=== PATIENT | female | born 1945 | race Caucasian/White ===

== ENCOUNTER 2023-10-23 03:51 | Emergency (ER) | payer OTHER, SELFPAY ==
[2023-10-23] VITALS (10 sets, daily range): BP systolic 119–150; BP diastolic 61–83; BMI 29.7
--- NOTE | 2023-10-23 04:00 | EDRN ---
TRIAGE NOTE DONE BY LENA WARD RN NOT BELINDA SCRUGGS
[2023-10-23 04:03] LABS: Glucose - Point of Care 157 mg/dl (70-99)
[2023-10-23 04:19] LABS: Hematocrit 38.1 % (37.0-47.0); Hemoglobin 13.1 g/dL (12.0-16.0); Mean Corp Hgb Conc. 34.4 g/dL (33.0-37.0); Mean Corpuscular Hgb 29.2 pg (27.0-31.0); Mean Corpuscular Volume 84.9 fL (81.0-99.0); Mean Platelet Volume 10.9 fL (7.4-10.4); Platelet Count 143 10^3/uL (130-400); Red Blood Cell Count 4.49 10^6/uL (4.20-5.40); Red Cell Dist. Width 12.9 % (11.5-14.5); White Blood Cell Count 8.7 10^3/uL (4.8-10.8)
[2023-10-23] MEDS: MORPHINE SULFATE 4 MG IV (04:33)
[2023-10-23] MEDS: ZOFRAN 4 MG IV ×2 (04:33→11:14)
[2023-10-23 04:42] LABS: ALT (SGPT) 65 U/L (0-35); AST (SGOT) 54 U/L (14-36); Albumin 4.6 g/dl (3.5-5.0); Alkaline Phosphatase 87 U/L (38-126); Blood Urea Nitrogen 24 mg/dl (7-17); Carbon Dioxide 19 mmol/L (22-30); Chloride 108 mmol/L (98-107); Estimated Creatinine Clearance 48 ml/min; Glucose 157 mg/dl (70-99); Lipase 86 U/L (23-300); Potassium 3.7 mmol/L (3.5-5.1); Sodium 139 mmol/L (135-145); Total Bilirubin 1.9 mg/dl (0.2-1.3); Total Protein 7.2 g/dl (6.3-8.2)
[2023-10-23 04:51] LABS: Troponin I < 0.012 ng/ml
--- NOTE | 2023-10-23 05:14 | ED.GENMED ---
Addendum entered and electronically signed by Gerard Mckeon Jr., PA-C 10/26/23 08:19:
Attempted to contact the patient about patient's urine culture as he will need a change in antibiotic. No answer message left.
Original Note:
History of Present Illness
<SHERIN Mims (Lenka) - Last Filed: 10/23/23 06:01>
General
Chief Complaint: Chest Pain
Source: patient and spouse
Exam Limitations: none
Time Seen by Provider: 10/23/23 04:04
Nursing documentation reviewed up to this point in time: agreed with
History of Present Illness
History of Present Illness:
Pt is a Azerbaijani-speaking 77 yo female with PMHx of HTN, hepatitis, renal CA s/p L nephrectomy, and cholecystectomy who presents to the ED with acute onset epigastric chest pain and RUQ pain x 2 hours. Per interpreting, pt awoke from sleep
around 0200 this morning with sudden severe pain localized to the lower mid-epigastrium. The pain now radiates over to her RUQ 'around my liver'. Pt notes that she always has a dull ache around her RUQ since her diagnosis of hepatitis 'when I was
younger', but this pain is worse than it has ever been. She took her BP upon awakening, it was 190/80, took amlodipine, and a recheck showed her BP around 160. She states she feels dizzy from the pain. Admits to having 'cystitis symptoms' of urinary
frequency, burning with urination, and 'pain over the bladder' x a 3-4 days for which she was drinking cranberry juice.
Per , pt had a cholecystectomy in 2001 due to 'elevated bilirubin'.
Past History
<SHERIN Mims (Lenka) - Last Filed: 10/23/23 06:01>
Past History
ED Past Medical History: Cancer (L kidney (s/p nephrectomy)), HTN, Hypothyroidism and Other (hepatitis)
ED Past Surgical History: Cholecystectomy (2001) and Urological (left nephrectomy d/t renal CA)
Social History
Tobacco: Non-smoker
Alcohol: None
Drug: None
Personal:
Living: with family
Phy Exam
<ST Mims (Lenka)CO - Last Filed: 10/23/23 06:01>
General Physical Exam
General Presentation: moderate distress
General age: appears stated age
General Skin: diaphoretic, pale and other (mildly jaundiced)
General Habitus: elderly
General Mental: alert
General Hydration: appears well hydrated
ENT Exam
ENT Exam: pharynx normal
Eye Exam
Eye Exam: conjunctiva normal (anicteric)
Cardiovascular Exam
Cardiovascular Exam: regular rate/rhythm, no edema, no gallop and normal peripheral pulses
Pulmonary Exam
Pulmonary Exam: lungs clear, no respiratory distress, no rales, no rhonchi, no wheezing and no cough
Gastrointestinal Exam
Gastrointestinal Exam: normal bowel sounds, soft, guarding and tender
Palpation: left upper quadrant: Mild tenderness, left lower quadrant: Mild tenderness, right upper quadrant: Severe tenderness and right lower quadrant: Mild tenderness
Liver Exam: jaundice and RUQ tenderness
Neurological Exam
Neurological Exam: alert, oriented x3 and speech normal
Scores
<Martha Rapp (Lenka) [facility] - Last Filed: 10/23/23 06:01>
Heart Score for Chest Pain Patients
STEMI patient?: No
History: Slightly or Non-Suspicious
ECG: Nonspecific Repolarization
Age: >/= 65 years
Risk Factors: 1 or 2 Risk Factors
Troponin: </= Normal Limit
Heart Score for Chest Pain Patients: 4
Heart Score Risk: 20.3% MACE over next 6 weeks
<Karlo Peoples DO - Last Filed: 10/23/23 06:56>
Heart Score for Chest Pain Patients
Heart Score for Chest Pain Patients: 4
Heart Score Risk: 20.3% MACE over next 6 weeks
<Tarah Pozo DO - Last Filed: 10/23/23 12:17>
Heart Score for Chest Pain Patients
Heart Score for Chest Pain Patients: 4
Heart Score Risk: 20.3% MACE over next 6 weeks
Course
<ST Mims (Lenka)CO - Last Filed: 10/23/23 06:01>
Orders/Labs/Results
Orders:
Orders
10/23/23 03:56
Electrocardiogram (*1) Urgent
Reason for Study: Chest Pain
EKG- Treatment ONCE
10/23/23 03:58
Bedside Glucose- Treatment ONCE
10/23/23 04:03
Add On- LAB Urgent
Tests Added?: lipase
10/23/23 04:05
CMP [Comprehensive Metabolic Panel] Urgent
Complete Blood Count/With Diff Urgent
Lipase Urgent
Manual Differential Urgent
Troponin I Urgent
10/23/23 04:08
Lactate Level [Lactic Acid] Urgent
10/23/23 04:30
Morphine Sulfate 4 mg .ROUTE .STK-MED ONE
Ondansetron Injectable [Zofran] 4 mg .ROUTE .STK-MED ONE
10/23/23 04:32
Ondansetron Injectable [Zofran] 4 mg IV NOW STA
10/23/23 04:33
Morphine Sulfate 4 mg IV NOW STA
10/23/23 04:58
CT Abd/pel Without Iv Or Oral Urgent
Comment:
Reason For Exam: flank/abd pain
10/23/23 06:07
Urinalysis Reflex To Culture Urgent
Date Specimen was Collected: 10/23/23
Time Specimen was Collected: 06:03
Urine Microscopic Reflex Cult Urgent
Urine Culture Urgent
PETRA Source: U
Specimen Description:
Date Specimen was Collected: 10/23/23
Time Specimen was Collected: 06:03
10/23/23 06:46
Electrocardiogram (*1) Urgent
Reason for Study: Chest Pain
EKG- Treatment ONCE
EKG- Treatment ONCE
10/23/23 06:54
CR Chest - 2 Views Urgent
Comment:
Reason For Exam: cp
10/23/23 07:31
US Abdomen Complete/Upper Urgent
Reason For Exam: RUQ pain
10/23/23 07:54
Troponin I Urgent
10/23/23 10:59
Ondansetron Injectable [Zofran] 4 mg IV NOW STA
Abnormal Lab Results
10/23/23 10/23/23 10/23/23
03:59 04:05 06:07
MPV 10.9 H fL
(7.4-10.4)
Segmented Neutrophils 35 L %
(42-75)
Monocytes (Manual) 17 H %
(2-9)
Chloride 108 H mmol/L
(98-107)
Carbon Dioxide 19 L mmol/L
(22-30)
BUN 24 H mg/dl
(7-17)
Creatinine 1.1 H mg/dL
(0.6-1.0)
Glucose 157 H mg/dl
(70-99)
Total Bilirubin 1.9 H mg/dl
(0.2-1.3)
AST 54 H U/L
(14-36)
ALT 65 H U/L
(0-35)
Urine Ketones 1+ A
(Negative)
Leukocyte Esterase Rfl 2+ A
(Negative)
Urine WBC (Reflex) 11-15 A /HPF
(0-5)
Urine Bacteria (Reflex) Few A
(Negative)
POC Glucose 157 H mg/dl
(70-99)
10/23/23 04:05
10/23/23 04:05
Vital Signs
Initial and Last Documented VS:
Initial Vital Signs
Pulse Resp BP Pulse Ox
64 28 130/74 99
10/23/23 03:57 10/23/23 03:57 10/23/23 03:57 10/23/23 03:57
Last Documented Vital Signs
Pulse Resp BP Pulse Ox
78 20 150/82 96
10/23/23 11:30 10/23/23 11:30 10/23/23 11:30 10/23/23 11:30
<Karlo Peoples, DO - Last Filed: 10/23/23 06:56>
Orders/Labs/Results
Orders:
Orders
10/23/23 03:56
Electrocardiogram (*1) Urgent
Reason for Study: Chest Pain
EKG- Treatment ONCE
10/23/23 03:58
Bedside Glucose- Treatment ONCE
10/23/23 04:03
Add On- LAB Urgent
Tests Added?: lipase
10/23/23 04:05
CMP [Comprehensive Metabolic Panel] Urgent
Complete Blood Count/With Diff Urgent
Lipase Urgent
Manual Differential Urgent
Troponin I Urgent
10/23/23 04:08
Lactate Level [Lactic Acid] Urgent
10/23/23 04:30
Morphine Sulfate 4 mg .ROUTE .STK-MED ONE
Ondansetron Injectable [Zofran] 4 mg .ROUTE .STK-MED ONE
10/23/23 04:32
Ondansetron Injectable [Zofran] 4 mg IV NOW STA
10/23/23 04:33
Morphine Sulfate 4 mg IV NOW STA
10/23/23 04:58
CT Abd/pel Without Iv Or Oral Urgent
Comment:
Reason For Exam: flank/abd pain
10/23/23 06:07
Urinalysis Reflex To Culture Urgent
Date Specimen was Collected: 10/23/23
Time Specimen was Collected: 06:03
Urine Microscopic Reflex Cult Urgent
Urine Culture Urgent
PETRA Source: U
Specimen Description:
Date Specimen was Collected: 10/23/23
Time Specimen was Collected: 06:03
10/23/23 06:46
Electrocardiogram (*1) Urgent
Reason for Study: Chest Pain
EKG- Treatment ONCE
EKG- Treatment ONCE
10/23/23 06:54
CR Chest - 2 Views Urgent
Comment:
Reason For Exam: cp
10/23/23 07:31
US Abdomen Complete/Upper Urgent
Reason For Exam: RUQ pain
10/23/23 07:54
Troponin I Urgent
10/23/23 10:59
Ondansetron Injectable [Zofran] 4 mg IV NOW STA
Abnormal Lab Results
10/23/23 10/23/23 10/23/23
03:59 04:05 06:07
MPV 10.9 H fL
(7.4-10.4)
Segmented Neutrophils 35 L %
(42-75)
Monocytes (Manual) 17 H %
(2-9)
Chloride 108 H mmol/L
(98-107)
Carbon Dioxide 19 L mmol/L
(22-30)
BUN 24 H mg/dl
(7-17)
Creatinine 1.1 H mg/dL
(0.6-1.0)
Glucose 157 H mg/dl
(70-99)
Total Bilirubin 1.9 H mg/dl
(0.2-1.3)
AST 54 H U/L
(14-36)
ALT 65 H U/L
(0-35)
Urine Ketones 1+ A
(Negative)
Leukocyte Esterase Rfl 2+ A
(Negative)
Urine WBC (Reflex) 11-15 A /HPF
(0-5)
Urine Bacteria (Reflex) Few A
(Negative)
POC Glucose 157 H mg/dl
(70-99)
10/23/23 04:05
10/23/23 04:05
Vital Signs
Initial and Last Documented VS:
Initial Vital Signs
Pulse Resp BP Pulse Ox
64 28 130/74 99
10/23/23 03:57 10/23/23 03:57 10/23/23 03:57 10/23/23 03:57
Last Documented Vital Signs
Pulse Resp BP Pulse Ox
78 20 150/82 96
10/23/23 11:30 10/23/23 11:30 10/23/23 11:30 10/23/23 11:30
<Tarah Pozo, DO - Last Filed: 10/23/23 12:17>
Orders/Labs/Results
Orders:
Orders
10/23/23 03:56
Electrocardiogram (*1) Urgent
Reason for Study: Chest Pain
EKG- Treatment ONCE
10/23/23 03:58
Bedside Glucose- Treatment ONCE
10/23/23 04:03
Add On- LAB Urgent
Tests Added?: lipase
10/23/23 04:05
CMP [Comprehensive Metabolic Panel] Urgent
Complete Blood Count/With Diff Urgent
Lipase Urgent
Manual Differential Urgent
Troponin I Urgent
10/23/23 04:08
Lactate Level [Lactic Acid] Urgent
10/23/23 04:30
Morphine Sulfate 4 mg .ROUTE .STK-MED ONE
Ondansetron Injectable [Zofran] 4 mg .ROUTE .STK-MED ONE
10/23/23 04:32
Ondansetron Injectable [Zofran] 4 mg IV NOW STA
10/23/23 04:33
Morphine Sulfate 4 mg IV NOW STA
10/23/23 04:58
CT Abd/pel Without Iv Or Oral Urgent
Comment:
Reason For Exam: flank/abd pain
10/23/23 06:07
Urinalysis Reflex To Culture Urgent
Date Specimen was Collected: 10/23/23
Time Specimen was Collected: 06:03
Urine Microscopic Reflex Cult Urgent
Urine Culture Urgent
PETRA Source: U
Specimen Description:
Date Specimen was Collected: 10/23/23
Time Specimen was Collected: 06:03
10/23/23 06:46
Electrocardiogram (*1) Urgent
Reason for Study: Chest Pain
EKG- Treatment ONCE
EKG- Treatment ONCE
10/23/23 06:54
CR Chest - 2 Views Urgent
Comment:
Reason For Exam: cp
10/23/23 07:31
US Abdomen Complete/Upper Urgent
Reason For Exam: RUQ pain
10/23/23 07:54
Troponin I Urgent
10/23/23 10:59
Ondansetron Injectable [Zofran] 4 mg IV NOW STA
Abnormal Lab Results
10/23/23 10/23/23 10/23/23
03:59 04:05 06:07
MPV 10.9 H fL
(7.4-10.4)
Segmented Neutrophils 35 L %
(42-75)
Monocytes (Manual) 17 H %
(2-9)
Chloride 108 H mmol/L
(98-107)
Carbon Dioxide 19 L mmol/L
(22-30)
BUN 24 H mg/dl
(7-17)
Creatinine 1.1 H mg/dL
(0.6-1.0)
Glucose 157 H mg/dl
(70-99)
Total Bilirubin 1.9 H mg/dl
(0.2-1.3)
AST 54 H U/L
(14-36)
ALT 65 H U/L
(0-35)
Urine Ketones 1+ A
(Negative)
Leukocyte Esterase Rfl 2+ A
(Negative)
Urine WBC (Reflex) 11-15 A /HPF
(0-5)
Urine Bacteria (Reflex) Few A
(Negative)
POC Glucose 157 H mg/dl
(70-99)
10/23/23 04:05
10/23/23 04:05
Vital Signs
Initial and Last Documented VS:
Initial Vital Signs
Pulse Resp BP Pulse Ox
64 28 130/74 99
10/23/23 03:57 10/23/23 03:57 10/23/23 03:57 10/23/23 03:57
Last Documented Vital Signs
Pulse Resp BP Pulse Ox
78 20 150/82 96
10/23/23 11:30 10/23/23 11:30 10/23/23 11:30 10/23/23 11:30
<SHERIN Mims (Lenka) - Last Filed: 10/23/23 06:01>
MDM/Problems Addressed
Differential Diagnosis Includes:
DDx: R nephrolithiasis vs hepatitis vs MA
Given pts pain localizing to the mid-lower epigastrium and RUQ, hx of hepatitis, and constellation of UTI symptoms, an MA is less likely. The EKG showed some PVCs but no acute STEMI. CrCl 52.40, safe to obtain CTAP w/w/o contrast to asses for
intraabdominal pathology. Will obtain UA.
Chronic conditions affecting care: Previous abdomnial surgery (cholecystectomy and L nephrectomy) and Cancer
<Martha Hightower (Lenka)ki, STPA - Last Filed: 10/23/23 06:01>
*Critical Care Note
Total Time (30-74mins, 75-104mins- exclusive of procedures): Not Applicable
<Karlo Peoples DO - Last Filed: 10/23/23 06:56>
*Critical Care Note
Total Time (30-74mins, 75-104mins- exclusive of procedures): 35 ( Critical care statement: A total of 35 minutes of critical care time was provided for this patient. This time is separate from time utilized to perform the aforementioned documented
procedures. Aggregate critical care time includes only time during which I was engaged in work direct)
<Tarah Pozo DO - Last Filed: 10/23/23 12:17>
Update Note
Update Note:
ATTENDING SIGN OUT NOTE
07:10 -assuming care of patient, 77-year-old female presenting to the emergency department for multiple complaints. Patient complaining of right-sided abdominal pain, flank pain, some substernal chest pain. Patient hemodynamically stable in the
emergency department. Unremarkable workup thus far with negative CT abdomen and pelvis. Patient had still been complaining of pain, added some substernal chest pain. For this reason pending right upper quadrant ultrasound imaging, troponin, chest
x-ray imaging, EKG. Labs thus far relatively unremarkable. No leukocytosis. Slight transaminitis. Patient with history of prior cholecystectomy. At time of signout, patient hemodynamically stable, reporting overall symptomatic improvement.
10:40 -patient's urine without significant signs of infection, trace amount of leukocytes however patient without urinary symptoms. Chest x-ray without acute cardiopulmonary disease. Troponin negative x 2. Right upper quadrant ultrasound shows
some mild dilatation to the bile duct, without additional acute findings. On reassessment, no focal tenderness to the right upper quadrant. At this time without concern for choledocholithiasis. Extensive conversation had with [place]ijani arborist representative,
patient continues to express some nausea and substernal/epigastric pain. Possible gastric component to patient's symptoms. She is requesting more medications. Will administer Zofran. Vital signs otherwise remain normal. She notes she is still
having some dizziness. Will ambulate to ensure steady. Otherwise feel that she is stable for continued outpatient workup. Advised close follow-up with a primary care doctor.
12:00 -patient's daughter arrived, does speak Malay. She would like the patient to be admitted to the hospital. In discussion with patient and daughter, did offer observation admission if patient is still symptomatic. She was able to ambulate,
however reported some dizziness. Vital signs however remained stable. Patient herself however does not want to stay in the hospital, would prefer to go home. Daughter does note longstanding history of urinary tract infections. In further
discussion, patient does note that she has had some slight dysuria. For this reason, will start on antibiotic. Patient has also been taking home remedies for her urinary symptoms which daughter thinks could be contributing to her symptoms, and she
will have her stop this. We went through all of her medications, and patient has not been taking them as directed. She has not been taking her blood pressure medications daily. Patient educated on compliance with medications. Daughter notes that
she will call the primary care doctor for an appointment. At this time do feel patient is stable for discharge, again with close interval follow-up with primary care doctor. Strict return precautions communicated
ED Attending Note
<SHERIN Mims (Lenka) - Last Filed: 10/23/23 06:01>
-
Portions of this chart may have been created with voice recognition software.� Occasional wrong word or��sound alike� substitutions may have occurred due to the inherent limitations of voice recognition software.
<Karlo Peoples DO - Last Filed: 10/23/23 06:56>
ED Attending Note
Patient seen and examined by attending physician: Yes
I performed the substantive portion of visit, reviewed & personally made and approve the management plan that is documented in note by myself or RITU.: Yes
ED Attending Note:
77-year-old female, Azerbaijani-speaking, brought in by private vehicle with acute epigastric chest pain and right upper quadrant abdominal pain for the last 2 hours. History and physical obtained with the help of Azerbaijani arborist representative through [employer]. Patient reports chronic right upper quadrant pain since she was diagnosed with hepatitis when she was younger. She reports that the pain is much worse now than it has been in the past. Patient reports elevated blood pressure since
awakening. She took one of her amlodipine which helped with her elevated blood pressure. Patient does have symptoms consistent with a UTI. Patient symptoms include frequency burning and abdominal pain. Patient is Uni nephric. She did have left
kidney removed due to left renal cancer.
CT Abdomen and Pelvis (without IV contrast):
IMPRESSION:
No acute intra-abdominal findings. No free air or free fluid.
Status post left nephrectomy. No right-sided obstructing renal calculi or hydronephrosis. A few pelvic phleboliths without a stone within the distal ureter.
Status post cholecystectomy, normal bile ducts and pancreas.
No bowel stranding or evidence of obstruction. Normal appendix.
No abdominal aortic aneurysm.
The report was faxed/transmitted at 6:14 AM EST. Please call [facility] at if you would like to discuss the case or have questions.
Patient was seen in conjunction with the PA student. I have reviewed and agree with the history and treatment plan presented. On my independent physical exam, patient is awake, alert, and oriented x3, Azerbaijani-speaking, severe acute distress upon
arrival which improved greatly during the course of the ER visit. Heart was regular rate rhythm. Lungs were clear to auscultation bilaterally without wheezes rales or rhonchi. Abdomen was soft with right-sided CVA tenderness. Right upper
quadrant tenderness to palpation. Was moving all 4 extremities. Skin was warm and dry.
Vital signs are stable. Patient not hypoxic
Nursing note reviewed. I agree with nursing documentation up to this point in time.
Home Meds and allergies reviewed.
NUMBER AND COMPLEXITY OF PROBLEMS ADDRESSED AT THE ENCOUNTER
� Chronic conditions affecting care: Left nephrectomy due to kidney cancer, chronic hepatitis, previous cholecystectomy
� Acute Exacerbation and/or Progression of Chronic Illness: Acute problem
� Differential Diagnosis includes: Kidney stone, colitis, diverticulitis, docolithiasis, hepatitis flareup,
AMOUNT AND/OR COMPLEXITY OF DATA TO BE REVIEWED AND ANALYZED
I performed an independent evaluation of the following and my interpretation is:
EKG: Normal sinus rhythm rate of 63 PVCs present. Left axis deviation. Rate of 63 bpm, normal intervals. When compared with previous EKG dated December 10, 2020, similar morphology noted.
CT: CT abdomen pelvis negative.
X-rays:
Ultrasound: Right upper quadrant ultrasound pending
Laboratory Studies: BUN of 24 creatinine of 1.1, lactic acid of 2.0, T. bili of 1.9, AST of 54, ALT of 65, initial troponin negative at <0.012, lipase of 86
Other:
Review of other/old records:
Clinical information was obtained by an independent historian:
Prescriptions/Medications Considered but not given:
Further testing considered but not performed:
RISK OF COMPLICATIONS AND/OR MORBIDITY OR MORTALITY OF PATIENT MANAGEMENT
Social determinants of health affecting care: Good Social Support
Discussion with other providers:
Escalation of care including admission/observation vs risk of discharge considered:
CRITICAL CARE NOTE:
Critical care statement: A total of 30 minutes of critical care time was provided for this patient. This time is separate from time utilized to perform the aforementioned documented procedures. Aggregate critical care time includes only time
during which I was engaged in work directly related to the patient's care, as described above, whether at the bedside or elsewhere in the Emergency Department.
Total Time (exclusive of procedures):30
Update:
Discharge Plan
Departure
Patient Disposition: Home (Routine Discharge)
Date of Disposition: 10/23/23
Time of Disposition: 12:13
Patient with high blood pressure during this ER visit?: Yes
Condition: Good
Discharge Problem:
Dizziness, Nausea, Urinary tract infection, Chest pain
Instructions: Urinary Tract Infection, Adult ED, Chest Pain DCA Follow Up, BLOOD PRESSURE
Prescriptions:
New
ondansetron 4 mg Tablet,Disintegrating
4 mg PO TIDPRN PRN (Reason: nausea/vomiting) Qty: 6 0RF
cephalexin 500 mg capsule
500 mg PO BID 7 Days Qty: 14 0RF
No Action
levothyroxine 75 MCG tablet
75 mcg PO DAILY AT 0700
losartan 25 MG tablet
50 mg PO DAILY
cholecalciferol (vitamin D3) 2,000 UNIT tablet
2,000 unit PO DAILY
Referrals:
Melia Call MD [Family Provider] -
Activity Restrictions/Additional Instructions:
You were seen in the emergency department for nausea, dizziness, chest pain, abdominal pain
You were found to have normal laboratory analysis, CT imaging of your abdomen, chest x-ray imaging, EKG, abdominal ultrasound. We suspect that you have a urinary tract infection. Please take your medications as prescribed.
Please follow-up closely with your primary care physician.
Return to the emergency department for any worsening of your symptoms, or any development of chest pain, difficulty breathing, abdominal pain with persistent vomiting and inability to tolerate food or liquid by mouth (concern for dehydration),
weakness or feeling like you are going to pass out, headache or confusion, fever greater than 100.4, or any additional symptoms that are concerning to you.
Thank you for choosing [facility].
Interventions
Interventions:
*Risk Screen - Suicide Last Done: 10/23/23 04:12
*General Assessment Last Done: 10/23/23 04:10
*Neglect/Abuse Screening Last Done: 10/23/23 04:10
ED- Fall Risk Assessment Last Done: 10/23/23 04:12
*ED COVID-19 Vaccine History Last Done: 10/23/23 04:11
ED- Cardiac Assessment Last Done: 10/23/23 04:28
Discharge Date and Time
Print Language: Azerbaijani
[2023-10-23 05:43] LABS: Absolute Neutrophils -Man Diff 3.1 10^3/uL (1.4-6.5); Band Neutrophils 1 % (0-3); Lymphocytes 47 % (20-51); Monocytes 17 % (2-9); Platelets Checked Yes; Segmented Neutrophils 35 % (42-75)
[2023-10-23 05:44] LABS: Normal RBC Morphology Yes; Total Cells Counted 100
[2023-10-23 07:07] LABS: Urine Albumin Negative (Neg - Trace); Urine Bilirubin Negative (Negative); Urine Character Clear (Clear); Urine Color Yellow; Urine Glucose Negative (Negative); Urine Leukocyte 2+ (Negative); Urine Nitrite Negative (Negative); Urine Occult Blood Negative (Negative); Urine Urobilinogen Negative (Neg - 1+)
[2023-10-23 07:56] LABS: Urine Ketone 1+ (Negative)
[2023-10-23 08:42] LABS: Troponin I < 0.012 ng/ml
[2023-10-23 08:44] LABS: Urine Amorphous Seen; Urine Mucus Few
[2023-10-23 08:45] LABS: Urine Red Blood Cell 0-2 /HPF (0-2)
[2023-10-23 08:47] LABS: Urine Bacteria Few (Negative)
== END 2023-10-23 12:32 | disposition home or self-care (01) ==
LOC: EMR 03:51
PROVIDERS: Student in an Organized Health Care Education/Training Program; EMERGENCY PHYSICIAN Student in an Organized Health Care Education/Training Program; FAMILY PHYSICIAN Family Medicine
DX: R11.0 Nausea (principal); R42 Dizziness and giddiness; R10.11 Right upper quadrant pain; R07.89 Other chest pain; R06.02 Shortness of breath; N39.0 Urinary tract infection, site not specified; I10 Essential (primary) hypertension; Z90.5 Acquired absence of kidney; Z85.528 Personal history of other malignant neoplasm of kidney; Z87.440 Personal history of urinary (tract) infections; Z90.49 Acquired absence of other specified parts of digestive tract
CPT/HCPCS: 99291; 96374; 96375; 96376; 71046; 74176; 76700; 80053; 81003; 81015; 82962; 83605; 83690; 84484; 85025; 87077; 87086; 87186; 93005